=== PATIENT | female | born 1990 | race Caucasian/White ===

== ENCOUNTER 2018-01-11 05:45 | Inpatient (IN) | payer OTHER ==
[~2018-01-11] VITALS: Ht 160 cm; Wt 65.0 kg
[~2018-01-11 05:45] MED LIST: ACYC400 PO; ALBU90OI6; BIRTH CONTROL; DOXY100 PO; OXYACE5T PO
[2018-01-11 07:37] LABS: BASOPHILS ABSOLUTE AUTO 0.02 K/mm3 (0.00-0.23); BASOPHILS PERCENT AUTO 0 % (0-2); EOSINOPHILS ABSOLUTE AUTO 0.02 K/mm3 (0.00-0.68); EOSINOPHILS PERCENT AUTO 0 % (0-6); Hematocrit 36.7 % (33.0-51.0); Hemoglobin 12.5 g/dL (11.5-16.0); IMMATURE GRAN PERCENT AUTO 1 % (0-1); LYMPHOCYTES ABSOLUTE AUTO 1.11 K/mm3 (0.84-5.20); LYMPHOCYTES PERCENT AUTO 6 % (21-46); MONOCYTES ABSOLUTE AUTO 0.71 K/mm3 (0.16-1.47); MONOCYTES PERCENT AUTO 4 % (4-13); Mean Corpuscular HGB 29.7 pg (26.0-34.0); Mean Corpuscular HGB Conc 34.1 g/dL (31.5-36.5); Mean Corpuscular Volume 87 fL (80-100); Mean Platelet Volume 11.9 fL (9.1-12.4); NEUTROPHILS ABSOLUTE AUTO 15.53 K/mm3 (1.96-9.15); NEUTROPHILS PERCENT AUTO 89 % (41-73); Platelet Count 129 K/mm3 (150-400); RDW Coefficient Variation 12.8 % (11.7-14.2); RDW Standard Deviation 40.3 fL (35.1-46.3); Red Blood Cell Count 4.21 M/mm3 (3.80-5.20); White Blood Cell Count 17.49 K/mm3 (4.00-11.30)
[2018-01-11] MEDS ORDERED: Verotin-Gr Cap1 EACH PO (10:25)
[2018-01-11] MEDS ORDERED: ACYC400 PO (10:48)
[2018-01-12 05:03] LABS: Hematocrit 34.5 % (33.0-51.0); Hemoglobin 11.4 g/dL (11.5-16.0); Mean Corpuscular HGB 29.8 pg (26.0-34.0); Mean Corpuscular Volume 90 fL (80-100); Mean Platelet Volume 12.2 fL (9.1-12.4); Platelet Count 129 K/mm3 (150-400); RDW Coefficient Variation 13.1 % (11.7-14.2); RDW Standard Deviation 42.5 fL (35.1-46.3); Red Blood Cell Count 3.82 M/mm3 (3.80-5.20); White Blood Cell Count 9.94 K/mm3 (4.00-11.30)
[2018-01-12] MEDS ORDERED: IBUP800 PO (12:13)
[2018-01-12] MEDS ORDERED: DOCU100 PO (12:14)
[2018-01-12] MEDS ORDERED: HPA LANOLIN40 GM (12:14)
[2018-01-12] MEDS ORDERED: CASTOR OIL PO (12:15)
[2018-01-12] MEDS ORDERED: [UNRECOGNIZED DRUG - SUPPLY] TOP (12:15)
== END 2018-01-12 16:46 | disposition home or self-care (01) | DRG 774 ==
LOC: BC 05:45
PROVIDERS: Obstetrics & Gynecology
PROC: 10E0XZZ Delivery of Products of Conception, External Approach (ICD-10-PCS; principal; 2018-01-11)
PROC: 3E0134Z Introduction of Serum, Toxoid and Vaccine into Subcutaneous Tissue, Percutaneous Approach (ICD-10-PCS; 2018-01-11)
DX: O99.825 Streptococcus B carrier state complicating the puerperium (principal); O98.53 Other viral diseases complicating the puerperium; B00.9 Herpesviral infection, unspecified; Z23 Encounter for immunization
CPT/HCPCS: 36415; 59414; 85025; 85027

== ENCOUNTER → 2024-06-17 | Outpatient (CLI) | payer OTHER ==
[~2024-06-17] MED LIST changes: +CASTOR OIL PO; +DOCU100 PO; +HPA LANOLIN40 GM; +IBUP800 PO; +Verotin-Gr Cap1 EACH PO; +[UNRECOGNIZED DRUG - SUPPLY] TOP
[2024-06-17 14:39] LABS: BASOPHILS ABSOLUTE AUTO 0.04 K/mm3 (0.00-0.23); BASOPHILS PERCENT AUTO 1 % (0-2); EOSINOPHILS ABSOLUTE AUTO 0.07 K/mm3 (0.00-0.68); EOSINOPHILS PERCENT AUTO 1 % (0-6); Hematocrit 43.9 % (33.0-51.0); Hemoglobin 14.8 g/dL (11.5-16.0); IMMATURE GRAN ABSOLUTE AUTO 0.01 K/mm3 (0.00-0.10); IMMATURE GRAN PERCENT AUTO 0 % (0-1); LYMPHOCYTES ABSOLUTE AUTO 1.44 K/mm3 (0.84-5.20); LYMPHOCYTES PERCENT AUTO 24 % (21-46); MONOCYTES ABSOLUTE AUTO 0.43 K/mm3 (0.16-1.47); MONOCYTES PERCENT AUTO 7 % (4-13); Mean Corpuscular HGB 30.2 pg (26.0-34.0); Mean Corpuscular HGB Conc 33.7 g/dL (31.5-36.5); Mean Corpuscular Volume 90 fL (80-100); Mean Platelet Volume 10.6 fL (9.1-12.4); NEUTROPHILS ABSOLUTE AUTO 4.13 K/mm3 (1.96-9.15); NEUTROPHILS PERCENT AUTO 68 % (41-73); Platelet Count 257 K/mm3 (150-400); RDW Standard Deviation 39.2 fL (35.1-46.3); White Blood Cell Count 6.12 K/mm3 (4.00-11.30)
[2024-06-17 15:12] LABS: Albumin, Blood 4.2 g/dL (3.4-5.0); Albumin/Globulin Ratio 1.2 (0.8-1.8); Alk Phos 47 U/L (50-136); Anion Gap 10 mmol/L (3-11); Bilirubin, Total 1.3 mg/dL (0.1-1.0); Blood Urea Nitrogen 12 mg/dL (8-24); CHOL/HDL RATIO 2.8; CO2, Blood 24 mmol/L (21-32); Calcium, Blood 9.3 mg/dL (8.5-10.1); Chloride, Blood 108 mmol/L (98-108); Cholesterol 193 mg/dL (50-200); Globulin, Blood 3.4 g/dL (2.2-4.0); Glucose, Blood 81 mg/dL (70-99); HDL Cholesterol 68 mg/dL (>39); LDL/HDL RATIO 1.5; Low Density Lipoprotein Chol 103 mg/dL (0-110); Potassium, Blood 4.1 mmol/L (3.5-5.5); Sodium, Blood 138 mmol/L (136-145); Total Protein, Blood 7.6 g/dL (6.4-8.2); Triglycerides 109 mg/dL (30-140); Very Low Density Lipoprot Chol 21 mg/dL (6-28)
[2024-06-17 15:27] LABS: Alanine Aminotransfer (ALT/SGP 22 U/L (12-78); Aspartate Aminotrans (AST/SGOT 14 U/L (12-37); Bun/Creatinine Ratio 17.9 (12.0-20.0); Creatinine, Blood 0.67 mg/dL (0.40-1.00); Ferritin, Serum 57 ng/mL (8-252); Free Thyroxine 1.09 ng/dL (0.70-1.60); Glomerular Filtration Rate 118 (60-); Iron Serum 107 ug/dL (50-170); Percent Saturation 31.2 % (15.0-50.0); Total Iron Binding Capacity 343 ug/dL (250-450); Triiodothyronine, Free 3.47 pg/mL (2.18-3.98)
== END ==
LOC: LAB 12:55 → LAB SHORT 12:55
PROVIDERS: General Practice
DX: N92.1 Excessive and frequent menstruation with irregular cycle (principal); R53.82 Chronic fatigue, unspecified
CPT/HCPCS: 80053; 80061; 82306; 82728; 83540; 83550; 84439; 84443; 84481; 85025

== ENCOUNTER → 2025-01-27 | Outpatient (CLI) | payer OTHER ==
[2025-01-27 19:01] LABS: BASOPHILS ABSOLUTE AUTO 0.06 K/mm3 (0.00-0.23); BASOPHILS PERCENT AUTO 1 % (0-2); EOSINOPHILS ABSOLUTE AUTO 0.15 K/mm3 (0.00-0.68); EOSINOPHILS PERCENT AUTO 2 % (0-6); Hematocrit 42.2 % (33.0-51.0); Hemoglobin 13.8 g/dL (11.5-16.0); IMMATURE GRAN ABSOLUTE AUTO 0.02 K/mm3 (0.00-0.10); IMMATURE GRAN PERCENT AUTO 0 % (0-1); LYMPHOCYTES ABSOLUTE AUTO 1.81 K/mm3 (0.84-5.20); LYMPHOCYTES PERCENT AUTO 24 % (21-46); MONOCYTES ABSOLUTE AUTO 0.64 K/mm3 (0.16-1.47); MONOCYTES PERCENT AUTO 8 % (4-13); Mean Corpuscular HGB Conc 32.7 g/dL (31.5-36.5); Mean Corpuscular Volume 92 fL (80-100); NEUTROPHILS ABSOLUTE AUTO 4.95 K/mm3 (1.96-9.15); NEUTROPHILS PERCENT AUTO 65 % (41-73); NRBC ABSOLUTE 0.00 K/mm3 (0.00-0.02); NRBC Auto 0.0 /100 WBC (0.0-0.2); Platelet Count 246 K/mm3 (150-400); RDW Coefficient Variation 12.1 % (11.7-14.2); RDW Standard Deviation 40.5 fL (35.1-46.3)
[2025-01-27 20:06] LABS: Ferritin, Serum 31.0 ng/mL (8-252); Thyroid Stimulating Hormone 2.11 uIU/mL (0.360-4.800); Total Iron Binding Capacity 345.0 ug/dL (250-450)
[2025-01-27 20:19] LABS: Alanine Aminotransfer (ALT/SGP 31.0 U/L (12-78); Albumin, Blood 4.0 g/dL (3.4-5.0); Albumin/Globulin Ratio 1.2 (0.8-1.8); Anion Gap 9.0 mmol/L (3-11); Aspartate Aminotrans (AST/SGOT 13.0 U/L (12-37); Bilirubin, Total 0.7 mg/dL (0.1-1.0); Blood Urea Nitrogen 11.0 mg/dL (8-24); CO2, Blood 23.0 mmol/L (21-32); Calcium, Blood 9.1 mg/dL (8.5-10.1); Chloride, Blood 107.0 mmol/L (98-108); Creatinine, Blood 0.58 mg/dL (0.40-1.00); Globulin, Blood 3.4 g/dL (2.2-4.0); Glucose, Blood 97.0 mg/dL (70-99); Potassium, Blood 3.9 mmol/L (3.5-5.5); Sodium, Blood 135.0 mmol/L (136-145); Total Protein, Blood 7.4 g/dL (6.4-8.2)
[2025-01-29 18:53] LABS: THYROID PEROXIDASE (TPO) AB 0.9 IU/mL (0.0-9.0)
== END | disposition home or self-care (01) ==
LOC: LAB 18:15 → LAB SHORT 18:15
PROVIDERS: General Practice
DX: N92.0 Excessive and frequent menstruation with regular cycle (principal); E06.3 Autoimmune thyroiditis; E55.9 Vitamin D deficiency, unspecified
CPT/HCPCS: 80053; 82306; 82728; 83540; 83550; 84439; 84443; 84481; 85025; 86376

== ENCOUNTER 2025-04-17 09:23 | Day surgery (SDC) | payer OTHER ==
[~2025-04-17] VITALS: Ht 160 cm; Wt 61.2 kg
[2025-04-17] VITALS (11 sets, daily range): BP systolic 99–132; BP diastolic 55–82
[~2025-04-17 09:23] MED LIST changes: +CeFAZolin Sodium 2,000 MG in NS 100 ML IV SCH
[2025-04-17] MEDS ORDERED: VITAMIN D310 MC4 PO (09:42)
[2025-04-17] MEDS ORDERED: ALBU90OI INH (09:43)
[2025-04-17] MEDS ORDERED: Bupivacaine 0.5% W/EPI 1:200000 SDV 30 ML Vial ONE (09:49)
[2025-04-17] MEDS ORDERED: Midazolam HCl 1MG / ML 2ML Vial ONE (10:02)
[2025-04-17] MEDS ORDERED: Albuterol 2.5 MG/3 ML VIAL ONE (10:02)
[2025-04-17] MEDS ORDERED: FentaNYL Citrate 50 MCG/ML 2 ML Injection ONE (10:02)
[2025-04-17] MEDS ORDERED: Rocuronium Bromide 10 MG/ML 5ML Injection IV ONE ×2 (10:03→11:51)
[2025-04-17] MEDS ORDERED: Dexamethasone Sod Phos 10 MG/ML 1ML VIAL ONE ×2 (10:03→10:57)
--- NOTE | 2025-04-17 10:11 | NUR ---
Pre-Op teaching done. Pt verbalizes understanding. Ambulatory in Day Surgery. History, Chart, Medications and Allergies reviewed before start of procedure. Patient confirms NPO status and agrees with scheduled surgery. Patient States Post-Procedure ride home has been arranged.
[2025-04-17] MEDS ORDERED: FentaNYL Citrate 50 MCG/ML 2 ML Injection IV PRN ×2 (11:05→11:10)
[2025-04-17] MEDS ORDERED: Ondansetron HCl 2 MG / ML 2ML Vial IV PRN ×2 (11:05→12:20)
[2025-04-17] MEDS ORDERED: HYDROmorphone HCl/Pf 1MG SYR ONE ×2 (11:05→12:26)
[2025-04-17] MEDS ORDERED: Labetalol HCL 5 MG/ML 4ML Injection (Single Dose) IV PRN (11:05)
[2025-04-17] MEDS ORDERED: Albuterol 2.5 MG/3 ML VIAL INH PRN (11:05)
[2025-04-17] MEDS ORDERED: HYDROmorphone HCl/Pf 1MG SYR IV PRN ×3 (11:10→12:15)
[2025-04-17] MEDS ORDERED: Labetalol HCL 5 MG/ML 4ML Injection (Single Dose) ONE (11:30)
[2025-04-17] MEDS ORDERED: Ondansetron HCl 2 MG / ML 2ML Vial ONE ×2 (12:02→12:26)
[2025-04-17] MEDS ORDERED: Sugammadex Sodium 200 MG/2ML SDV (100 MG/ML) ONE (12:02)
[2025-04-17] MEDS ORDERED: Metoclopramide HCl 5MG / ML 2ML Vial IV PRN (12:15)
[2025-04-17] MEDS ORDERED: FLU VACC TS2025-26(6MOS UP)/PF 45 MCG/0.5 ML SYRINGE IM SCH (12:15)
[2025-04-17] MEDS ORDERED: Naloxone HCl 0.4MG / ML 1ML Vial IV PRN (12:20)
[2025-04-17] MEDS ORDERED: Ketorolac Tromethamine 30mg Vial IV PRN (12:35)
--- NOTE | 2025-04-17 13:15 | NUR ---
ARRIVAL TO UNIT AFTER RECEIVING REPORT FROM CHUTE LOADER, PATIENT TRANSFERRED TO UNIT VIA GURNEY AT APPROX 1305. PATIENT LETHARGIC - EASILY AROUSABLE W/ VERBAL STIMULI. COMMUNICATES NEEDS EFFECTIVELY. VSS. TOLERATING ROOM AIR - SATs >90%. S/P LAP HYSTER. PAIN TOLERABLE AT THIS TIME - KPAD APPLIED TO ABD. X4 LAP SITES C/D/I. SCANT BLEEDING ON TATA PAD. DENIES N/V AT THIS TIME - IVF INFUSING PER EMAR. LFA PIV PATENT. SMALL SNACKS AND WATER WITHIN REACH. SPOUSE AT BEDSIDE. CALL LIGHT IN REACH.
[2025-04-17] MEDS ORDERED: ACET325 PO (14:37)
[2025-04-17] MEDS ORDERED: OXYC10TA19 PO (14:38)
[2025-04-17] MEDS ORDERED: SIME80CH PO (14:38)
--- NOTE | 2025-04-17 15:19 | NUR ---
SHIFT SUMMARY NO ACUTE EVENTS SINCE TRANSFER TO UNIT. PATIENT ALERT AND ORIENTED X4. COMMUNICATING NEEDS EFFECTIVELY. VSS. S/P LAP HYSTER. PAIN MANAGED PER EMAR AND W/ KPAD. MILD NAUSEA - TOLERATING SMALL AMNTS OF ORAL INTAKE. IVF INFUSING PER EMAR. AMBULATING W/ SBA TO RESTROOM. AWAITING POST OP VOID. SCANT BLEEDING ON TATA PAD. CALL LIGHT IN REACH. REPORT GIVEN TO CODY AVENDANO TO ASSUME CARE AT THIS TIME.
--- NOTE | 2025-04-17 18:54 | NUR ---
DISCHARGE SUMMARY S/P LAP HYSTER. A&O x4, VSS. TOLERATING REGULAR DIET WELL. LAP SITES x4 w/WOUND GLUE, C/D/I. AMBULATED TO BATHROOM TO VOID. POST VOID RESIDUAL SHOWED 0 mL. DISCHARGE INSTRUCTIONS REVIEWED & GIVEN. ESCORTED OUT VIA WC.
== END 2025-04-17 18:55 | disposition home or self-care (01) ==
LOC: SURS 09:23 → ORSCMMR 09:23 → ORD 10:00 → ORSCMMR 11:00 → SURS 12:56 → ORSCMMR 18:55
PROVIDERS: Obstetrics & Gynecology
PROC: 0UT9FZZ Resection of Uterus, Via Natural or Artificial Opening With Percutaneous Endoscopic Assistance (ICD-10-PCS; principal; 2025-04-17 11:00)
PROC: 0U504ZZ Destruction of Right Ovary, Percutaneous Endoscopic Approach (ICD-10-PCS; principal; 2025-04-17 11:00)
DX: N92.0 Excessive and frequent menstruation with regular cycle (principal); N94.6 Dysmenorrhea, unspecified; J45.909 Unspecified asthma, uncomplicated; Z87.891 Personal history of nicotine dependence; E06.3 Autoimmune thyroiditis; Z79.899 Other long term (current) drug therapy
CPT/HCPCS: 51702; 86850; 86900; 86901; 88307; A9270; J0690; J1100; J1171; J1790; J1885; J2250; J2405; J2704; J3010; J7120